=== PATIENT | male | born 1985 | race Caucasian/White ===

== ENCOUNTER 2022-06-05 21:12 | Emergency (ER) | payer OTHER ==
[2022-06-05] MEDS ORDERED: LIDOCAINE PATCH 5% TOP STA (21:48)
[2022-06-05] MEDS ORDERED: IBUPROFEN 800 MG TABLET PO STA (23:14)
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
[2022-06-05] MEDS ORDERED: oxyCODONE/ACET 5/325 Prepack 4 PO STA (23:47)
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
[2022-06-05 23:58] VITALS: BP 112/68
== END 2022-06-05 23:58 | disposition home or self-care (01) ==
LOC: ED 21:12
DX: S42.252A Displaced fracture of greater tuberosity of left humerus, initial encounter for closed fracture (principal); V86.56XA Driver of dirt bike or motor/cross bike injured in nontraffic accident, initial encounter; Y93.55 Activity, bike riding
CPT/HCPCS: 73030; 99283; A9270